=== PATIENT | male | born 1955 | race Caucasian/White ===

== ENCOUNTER → 2019-12-30 10:30 | Outpatient (BNVA) | payer MEDICARE, OTHER, SELFPAY | PROVIDERS: Visit Provider Nurse Practitioner Family | DX: Z12.11 Encounter for screening for malignant neoplasm of colon (principal); I10 Essential (primary) hypertension; R73.9 Hyperglycemia, unspecified; Z12.5 Encounter for screening for malignant neoplasm of prostate; M25.60 Stiffness of unspecified joint, not elsewhere classified; M51.36 Other intervertebral disc degeneration, lumbar region; E78.5 Hyperlipidemia, unspecified | CPT/HCPCS: 80053; 80061; 83036; 85025; 85651; 86038; 86140; 86431; G0103 ==

== ENCOUNTER → 2020-02-03 08:56 | Outpatient (BNVA) | payer MEDICARE, OTHER, SELFPAY | PROVIDERS: Visit Provider Internal Medicine | DX: Z12.11 Encounter for screening for malignant neoplasm of colon (principal); Z20.828 Contact with and (suspected) exposure to other viral communicable diseases | CPT/HCPCS: 87635 ==

== ENCOUNTER 2020-02-08 07:49 | Day surgery (SDC) | payer MEDICARE, OTHER, SELFPAY ==
[2020-02-03 13:07] VITALS: BMI 44.0
[2020-02-08 08:06] VITALS: BP 118/79; PULSE 90; RESP 18; TEMP 36.6; O2SAT 95
[2020-02-08] MEDS: sodium chloride 0.9% 1,000 ML 30 ML IV (08:15)
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
--- NOTE | 2020-02-08 09:31 | W.PM.OPSFHP ---
Same Day Surgery H&P Indication for Procedure/HPI DATE OF PROCEDURE: February 08, 2020 CHIEF COMPLAINT/INDICATIONFOR SURGICAL PROCEDURE: Screening colonoscopy PREOP DIAGNOSIS: Screening colonoscopy PLANNED PROCEDRUE: Operation Date: 02/08/20 09:15 Proposed Procedures p Colonoscopy 69824 Z12.11(Not Applicable) - James Martinez MD This is a pleasant 64 years old gentleman referred to my practice for screening colonoscopy. Patient had a previous colonoscopy before 12-years he was told that he had couple polyps that were removed. Patient also reports to me that has his brother at age of 58 developed colorectal cancer. He denies bleeding per rectum or nonintentional weight loss. ROS All systems have been reviewed negative except as per the above or per problem list Medications/Allergies* Home Medications Medication Instructions Recorded Confirmed Type gabapentin 300 mg capsule 600 mg PO BID PRN cap 12/30/19 02/08/20 History Allergies/Adverse Reactions Allergy/AdvReac Type Severity Reaction Status Date / Time tramadol AdvReac ADR-Seizure Verified 02/08/20 09:32 Current Medications: Generic Name Dose Route Start Last Admin Trade Name Freq PRN Reason Stop Dose Admin Sodium Chloride 1,000 mls @ 30 mls/hr 02/08/20 08:00 02/08/20 08:15 Sodium Chloride 0.9% IV 30 mls/hr .Q24H STEFANIE Administration Pertinent History/Comorbid Conditions* Medical History (Updated 12/30/19 @ 13:15 by YUMIKO Moran) DDD (degenerative disc disease), lumbar Erectile dysfunction Hyperlipidemia Hypertension Surgical History (Updated 12/30/19 @ 11:06 by YUMIKO Moran) History of tonsillectomy and adenoidectomy Hx of colonoscopy (~2009) Hx of spinal fusion (~2006) Family History (Updated 12/30/19 @ 10:31 by Aneta Quigley LPN, RT) Diabetes Family/Other Cancer Family/Other Hypertension Family/Other Social History Smoking and tobacco status: never smoked Second hand smoke exposure: No Alcohol intake: never Lives independently: Yes Household members: spouse Marital status: Current occupational status: disabled History of recent travel: No Current gender identity: Male Pertinent Exam Findings alert, oriented x 3, clear to auscultation bilaterally, regular rate & rhythm and procedure specific exam findings (Abdominal examination nontender nondistended soft with BMI 44) Recommendations Surgery/Procedure today (Colonoscopy with possible biopsy and possible polypectomy and informed consent per chart) Coding Level of Care Code Acute Electronic Warfare Officer for Aron Ramos
[2020-02-08 09:56] VITALS: BP 98/57; PULSE 75; RESP 18; TEMP 36.8; O2SAT 95
--- NOTE | 2020-02-08 10:00 | ANE.PACU2 ---
Inpatient post-anesthesia follow up: Airway intact: Yes Vital signs: Temperature 98.2 F Pulse Rate 75 Respiratory Rate 18 Blood Pressure 98/57 Pulse Oximetry 95 Oxygen Delivery Me thod Nasal Cannula Oxygen Flow Rate 2 Fraction of Inspir ed Oxygen Hydration adequate: Yes Nausea and vomiting: No Pain level: 1 Mental status: Baseline
[2020-02-08 10:11] VITALS: BP 103/68; PULSE 66; RESP 18; O2SAT 97
== END 2020-02-08 10:15 | disposition home or self-care (01) ==
PROVIDERS: Visit Provider Surgery
PROC: 0DJD8ZZ Inspection of Lower Intestinal Tract, Via Natural or Artificial Opening Endoscopic (ICD-10-PCS; CPT 45378; principal; 2020-02-08 09:15)
DX: Z12.11 Encounter for screening for malignant neoplasm of colon (principal); D12.2 Benign neoplasm of ascending colon; K57.30 Diverticulosis of large intestine without perforation or abscess without bleeding; I10 Essential (primary) hypertension; E78.5 Hyperlipidemia, unspecified; N52.9 Male erectile dysfunction, unspecified; M51.36 Other intervertebral disc degeneration, lumbar region; Z79.899 Other long term (current) drug therapy; Z80.0 Family history of malignant neoplasm of digestive organs
CPT/HCPCS: 12345; 45380; 88305; J2704; J7030

== ENCOUNTER → 2020-07-02 09:19 | Outpatient (BNVA) | payer MEDICARE, OTHER, SELFPAY | PROVIDERS: Visit Provider Nurse Practitioner Family | DX: E11.9 Type 2 diabetes mellitus without complications (principal); I10 Essential (primary) hypertension; E78.5 Hyperlipidemia, unspecified | CPT/HCPCS: 80053; 80061; 83036; 84443; 85025 ==

== ENCOUNTER → 2021-03-14 14:47 | Outpatient (BNVA) | payer MEDICARE, OTHER, SELFPAY | PROVIDERS: Visit Provider Nurse Practitioner Family | DX: E78.5 Hyperlipidemia, unspecified (principal); R05.9 Cough, unspecified; I10 Essential (primary) hypertension; E11.65 Type 2 diabetes mellitus with hyperglycemia; E66.9 Obesity, unspecified; J40 Bronchitis, not specified as acute or chronic; R20.2 Paresthesia of skin; Z68.41 Body mass index [BMI] 40.0-44.9, adult | CPT/HCPCS: 71046; 80053; 80061; 83036; 85025 ==

== ENCOUNTER → 2021-09-30 14:56 | Outpatient (BNVA) | payer MEDICARE, OTHER, SELFPAY | PROVIDERS: Visit Provider Nurse Practitioner Family | DX: R06.02 Shortness of breath (principal); M51.36 Other intervertebral disc degeneration, lumbar region; I10 Essential (primary) hypertension; E78.5 Hyperlipidemia, unspecified; J40 Bronchitis, not specified as acute or chronic; R05.9 Cough, unspecified; E11.9 Type 2 diabetes mellitus without complications; Z12.5 Encounter for screening for malignant neoplasm of prostate | CPT/HCPCS: 71046; 80053; 80061; 82607; 83036; 83735; 84443; 85025; G0103 ==

== ENCOUNTER 2021-10-31 14:35 | Outpatient (CLI) | payer MEDICARE, OTHER, SELFPAY ==
[2021-10-31] MEDS: iodixanol 320 mg/mL 100mL Btl IV ×2 (14:53→15:11)
--- NOTE | 2021-10-31 15:00 | CT_ITS ---
WS: [id number] CT CHEST TECHNIQUE: Contrast enhanced CT of the chest with coronal and sagittal reformatted images. CLINICAL INFORMATION: R06.02 - Shortness of breath COMPARISON: DLP: 879.[address] scans at [facility] use at least one of these dose optimization techniques: automated e xposure control; mA and/or kV adjustment per patient size (includes targeted exams where dose is matc hed to clinical indication); or iterative reconstruction. FINDINGS: Both lungs are well aerated. No acute pulmonary infiltrates. No focal consolidation or pleu ral fluid. Calcified granuloma RIGHT upper lobe. Slight subsegmental atelectasis in the RIGHT middle lobe anteriorly. Ectatic ascending thoracic aorta measuring 3.6 CM. Normal caliber descending thoracic aorta. Normal t hyroid gland. No mediastinal or hilar lymphadenopathy. No axillary lymphadenopathy. Coronary calcific ation. Prior cholecystectomy. Adrenal glands are normal. Tiny cyst the liver dome. Dorsal epidural spinal st imulator. Hypertrophic changes lower thoracic and upper lumbar spine. Moderate central canal stenosis T10-T11, T12-L1, and L1-L2 due to midline disc osteophyte spurring. CT/CT chest w con* [id number] IMPRESSION: 1. Both lungs are well aerated. No acute pulmonary infiltrates. 2. No mediastinal or hilar lymphadenopathy. 3. Ectatic ascending thoracic aorta measuring 3.6 cm.Normal caliber descending thoracic aorta 4. Prior cholecystectomy. 5. Dorsal epidural spinal stimulator.
== END 2021-10-31 14:36 | disposition home or self-care (01) ==
LOC: RAD 14:36
PROVIDERS: Visit Provider Nurse Practitioner Family
DX: R06.02 Shortness of breath (principal)
CPT/HCPCS: 71260

== ENCOUNTER → 2022-06-10 12:02 | Outpatient (BNVA) | payer MEDICARE, OTHER, SELFPAY | PROVIDERS: PCP Nurse Practitioner Family; Visit Provider Nurse Practitioner Family | DX: R05.9 Cough, unspecified (principal); R06.02 Shortness of breath; I10 Essential (primary) hypertension; E78.5 Hyperlipidemia, unspecified; E11.9 Type 2 diabetes mellitus without complications; M51.36 Other intervertebral disc degeneration, lumbar region; J40 Bronchitis, not specified as acute or chronic; Z23 Encounter for immunization; J32.9 Chronic sinusitis, unspecified | CPT/HCPCS: 80053; 80061; 82607; 83036; 84443; 85025; 87400; 87426 ==

== ENCOUNTER 2022-06-27 09:03 | Outpatient (CLI) | payer MEDICARE, OTHER, SELFPAY ==
[2022-06-27] MEDS: iohexol 350 mg/mL 500 mL Btl (per mL) IV (09:29)
--- NOTE | 2022-06-27 09:30 | CT_ITS ---
WS: [id number] CT CHEST WITH INTRAVENOUS CONTRAST HISTORY: R06.02 - Shortness of breath TECHNIQUE: Contiguous 5 mm axial imaging performed on the thorax. Coronal and sagittal reformats are submitted. All CT scans at [facility] use at least one of these dose optimization techniques: automated exposure control; mA and/or kV adjustment per patient size (includes targeted exams where dose is matched to clinical indication); or iterative reconstruction. CONTRAST: Omnipaque 350; 95 mL IV. DLP: 806.31 mGy.cm COMPARISON: 10/31/2021 Lungs and central airway: No pulmonary mass or nodule. No pneumonia. Lungs are well-aerated. Pleura: Normal. No pleural effusion. Heart and pericardium: Normal size heart with no pericardial effusion. Mediastinum and clarissa: No mediastinum or hilar adenopathy. Vessels: Mild dilatation of the ascending aorta to 4.0 cm. Not considered significantly enlarged. Not aneurysmal. Mild ectasia. Descending aorta is normal caliber. Very minimal atherosclerosis. Pulmonar y artery size is normal. Chest wall and lower neck: No soft tissue masses. Upper abdomen: Very small low-attenuation lesion in the LEFT lobe of the liver is stable. Probably re presenting a small cyst. Prior cholecystectomy. No adrenal mass. Osseous structures: Prior cervical fusion. Dorsal column stimulator electrodes over the mid thoracic spine. CT/CT chest w con* [id number] IMPRESSION: 1. No pulmonary mass, pneumonia or nodule. 2. Mildly ectatic but nonaneurysmal ascending aorta at 4.0 cm. Slight increase d from 3.6 cm on the prior exam. 3. Prior cholecystectomy.
== END 2022-06-27 09:04 | disposition home or self-care (01) ==
PROVIDERS: PCP Nurse Practitioner Family; Visit Provider Nurse Practitioner Family
DX: R06.02 Shortness of breath (principal); I77.819 Aortic ectasia, unspecified site; Z90.49 Acquired absence of other specified parts of digestive tract
CPT/HCPCS: 71260; Q9967

== ENCOUNTER → 2022-12-31 16:52 | Outpatient (BNVA) | payer MEDICARE, OTHER, SELFPAY | PROVIDERS: PCP Nurse Practitioner Family; Visit Provider Nurse Practitioner Family | DX: E11.9 Type 2 diabetes mellitus without complications (principal); Z12.5 Encounter for screening for malignant neoplasm of prostate | CPT/HCPCS: 80053; 80061; 83036; 84443; 85025; G0103 ==

== ENCOUNTER → 2023-08-13 11:00 | Outpatient (BNVA) | payer MEDICARE, OTHER, SELFPAY | PROVIDERS: PCP Nurse Practitioner Family; Visit Provider Nurse Practitioner Family | DX: E11.9 Type 2 diabetes mellitus without complications (principal); R53.83 Other fatigue; M25.60 Stiffness of unspecified joint, not elsewhere classified; E78.5 Hyperlipidemia, unspecified | CPT/HCPCS: 80053; 80061; 82607; 83036; 84439; 84443; 84481; 85025; 85651; 86038; 86140; 86200; 86376; 86431 ==

== ENCOUNTER → 2024-02-23 12:12 | Outpatient (BNVA) | payer MEDICARE, OTHER, SELFPAY | PROVIDERS: PCP Nurse Practitioner Family; Visit Provider Nurse Practitioner Family | DX: E11.9 Type 2 diabetes mellitus without complications (principal) | CPT/HCPCS: 80053; 80061; 83036; 84443; 85025 ==

== ENCOUNTER → 2024-03-08 08:25 | Outpatient (BNVA) | payer MEDICARE, OTHER, SELFPAY | PROVIDERS: PCP Nurse Practitioner Family; Visit Provider Nurse Practitioner Family | DX: E78.5 Hyperlipidemia, unspecified (principal) | CPT/HCPCS: 85025 ==

== ENCOUNTER → 2024-09-13 12:28 | Outpatient (BNVA) | payer MEDICARE, OTHER, SELFPAY | PROVIDERS: PCP Nurse Practitioner Family; Visit Provider Nurse Practitioner Family | DX: E11.9 Type 2 diabetes mellitus without complications (principal); Z12.5 Encounter for screening for malignant neoplasm of prostate | CPT/HCPCS: 80053; 80061; 82043; 83036; 84443; 85025; G0103 ==

== ENCOUNTER → 2025-02-01 12:56 | Outpatient (BNVA) | payer MEDICARE, OTHER, SELFPAY | PROVIDERS: PCP Nurse Practitioner Family; Visit Provider Nurse Practitioner Family | DX: I95.9 Hypotension, unspecified (principal) | CPT/HCPCS: 80053; 85025 ==

== ENCOUNTER → 2025-05-02 10:52 | Outpatient (BNVA) | payer MEDICARE, OTHER, SELFPAY | PROVIDERS: PCP Nurse Practitioner Family; Visit Provider Nurse Practitioner Family | DX: E11.9 Type 2 diabetes mellitus without complications (principal); E55.9 Vitamin D deficiency, unspecified | CPT/HCPCS: 80053; 80061; 82306; 82607; 83036; 84443; 85025 ==

== ENCOUNTER → 2025-05-18 11:32 | Outpatient (BNVA) | payer MEDICARE, OTHER, SELFPAY | PROVIDERS: PCP Nurse Practitioner Family; Visit Provider Nurse Practitioner Family | DX: R89.9 Unspecified abnormal finding in specimens from other organs, systems and tissues (principal) | CPT/HCPCS: 82310; 83970 ==

== ENCOUNTER 2025-05-29 07:17 | Outpatient (CLI) | payer MEDICARE, OTHER, SELFPAY ==
--- NOTE | 2025-05-29 07:24 | CT_ITS ---
WS: [id number] CT CERVICAL SPINE HISTORY: RADICULOPATHY, CERVICAL REGION TECHNIQUE: Contiguous 2.0 mm axial imaging performed through the entire cervical spine. Sagittal and coronal reformats also performed. All CT scans at [facility] use at least one of these dose optimization techniques: automated exposure control; mA and/or kV adjustment per patient size (includes targeted exams where dose is matched to clinical indication); or iterative reconstruction. DLP: 193.57 mGy.cm COMPARISON: None available. Straightening of the normal cervical lordosis. Interbody fusion at C5-6 and C6- 7. Disc fusion also at C4-5. There is a large posterior bridging osteophyte extending from C4 to the superior endplate of C6. Facets are normally aligned. There is a component of facet joint fusion also beginning at C4-5 bilaterally extending to C7-T1. The lateral masses are aligned. The odontoid is intact. Craniocervical junction is normal. C2-C3: Mild facet arthritis. No stenosis. C3-C4: Osteophytic ridging with a shallow central disc protrusion. Bilateral facet arthritis, LEFT greater than RIGHT. Mild RIGHT and moderate LEFT foraminal stenosis. C4-C5: Large bony bridging posteriorly encroaches upon the ventral thecal sac, greater to the LEFT. Mild to moderate central with mild RIGHT and moderate LEFT foraminal stenosis predominantly due to this large bridging osteophyte. C5-C6: Continuation of the posterior large bony bridge along the ventral thecal sac. Mild foraminal narrowing and facet arthritis. C6-C7: Mild osteophytic ridging. Very mild LEFT foraminal stenosis. C7-T1: RIGHT foraminal osteophyte with mild to moderate RIGHT foraminal stenosis. Paravertebral soft tissues are normal. CT/CT cervical spin wo con* [id number] IMPRESSION: 1. Interbody spacers with fusion intact at C5-6 and C6-7. Additional osseous f usion at C4-5. 2. 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 3. Large bony bridge at C4-5 contacts the ventral thecal sac with deformity re sulting in mild to moderate central stenosis, greatest LEFT paracentral region. Additional moderate LEFT and mild RIGHT foraminal stenosis. 4. Moderate LEFT foraminal stenosis at C3-4 and mild RIGHT. 5. Mild bilateral foraminal stenosis at C5-6, LEFT at C6-7 and mild to moderat e on the RIGHT at C7-T1. 6. Variable component of facet joint osseous fusion bilaterally beginning at C 4-5 to C7-T1.
== END 2025-05-29 07:18 | disposition home or self-care (01) ==
LOC: RAD 07:18
PROVIDERS: PCP Nurse Practitioner Family; Visit Provider Nurse Practitioner Family
DX: M47.892 Other spondylosis, cervical region (principal); M25.78 Osteophyte, vertebrae; M43.22 Fusion of spine, cervical region; R93.7 Abnormal findings on diagnostic imaging of other parts of musculoskeletal system; M48.02 Spinal stenosis, cervical region; Z98.890 Other specified postprocedural states; M48.03 Spinal stenosis, cervicothoracic region
CPT/HCPCS: 72125